=== PATIENT | female | born 1965 | race African-American/Black ===

== ENCOUNTER 2017-04-08 17:58 | Emergency (ER) | payer OTHER ==
[~2017-04-08] VITALS: Ht 152.4 cm; Wt 97.1 kg
--- NOTE | 2017-04-08 19:34 | PHYS DOC ---
General Chief Complaint: BURN/SMOKE INHALATION Stated Complaint: BURN ON ARMS Time Seen by MD: 19:31 Source: patient Exam Limitations: no limitations Problems: History of Present Illness Initial Comments Patient is a 51-year-old female here with a work comp burn injury to her arms. Patient states that she was removing a hot posey from a 400 oven burning the medial aspect of both of her forearms. It affected the right greater than left and took place about an hour and a half ago. There are areas of redness but no blisters she describes the pain as severe and is unable to tolerate her coat or other clothing overlying it. She's had ice on it since she's been here her tetanus is up-to-date. She is complaining of severe pain 10 on a pain scale states her tetanus is up-to-date she is normally healthy. Onset: this afternoon Severity: mild Pain/Injury Location: left forearm Method of Injury: burn Modifying Factors: worse with jarring, worse with movement Allergies: Coded Allergies: No Known Drug Allergies (Unverified , 04/08/17) Past Medical History Medical History: arthritis Surgical History: noncontributory Social History Smoker: cigarettes Alcohol: none Drugs: none Review of Systems Constitutional: denies chills, denies diaphoresis, denies fever, denies malaise Respiratory: denies cough, denies shortness of breath Cardiovascular: denies chest pain, denies palpitations Gastrointestinal: denies diarrhea, denies nausea, denies vomiting Musculoskeletal: see HPI Skin: see HPI Psychiatric/Neurological: denies numbness, denies paresthesia, denies pre- existing deficit, denies weakness Physical Exam General Appearance: mild distress Neck: non-tender, supple Cardiovascular/Respiratory: normal peripheral pulses, no respiratory distress Shoulder: non-tender, no evidence of injury Elbow/Forearm: normal ROM, soft tissue tenderness (areas of erythema at the medial aspects of bilateral forearms right greater than left total body surface area less than 3% there is no blisters or lopez are first-degree) Wrist: non-tender, no evidence of injury Neurologic/Tendon: normal sensation, normal motor functions, normal tendon functions, responds to pain, no evidence tendon injury Psychiatric: alert, oriented x 3 Orders, Labs, Meds After icing Silvadene applied and wounds dressed by RN. I discussed departure instructions [id number] and provided him in written format see below. Departure Time of Disposition: 19:32 Disposition: 01 HOME, SELF-CARE Diagnosis: work comp burn injuries bilateral forearms grade 1 Condition: GOOD Patient Instructions: Burn Care, [id number] Additional Instructions: Please review the patient education materials given by ED staff. Off work through . Follow-up with your employer regarding Worker's Compensation. [id number] ibuprofen for baseline discomfort. Prescription: Cephalexin, Silvadene, [place] 7.5 mg quantity 15 Change dressings each time you reapply Silvadene. Follow-up with her doctor in 2-3 days for recheck. Return to ED with new or changing symptoms. IVETT CAMARILLO DO Apr 08, 2017 19:34
[2017-04-08] MEDS ORDERED: HYDR-965 PO (19:36)
[2017-04-08] MEDS ORDERED: SILV20CR14 TP (19:38)
[2017-04-08] MEDS ORDERED: CEPH500C PO (19:38)
[2017-04-08 19:40] VITALS: BP 138/72
[2017-04-08] MEDS ORDERED: CEPHALEXIN 250 MG CAPSULE PO ONE (20:00)
[2017-04-08] MEDS ORDERED: ONDANSETRON ODT 4 MG TAB.RAPDIS PO ONE (20:00)
[2017-04-08] MEDS ORDERED: oxyCODONE/APAP 10/325 1 TAB TABLET PO ONE (20:00)
[2017-04-08] MEDS ORDERED: silver sulfADIAZINE 1% CREAM 50GM JAR. TP ONE (20:00)
== END 2017-04-08 19:47 | disposition home or self-care (01) ==
LOC: ER 17:58
DX: T22.112A Burn of first degree of left forearm, initial encounter (principal); T22.111A Burn of first degree of right forearm, initial encounter; T31.0 Burns involving less than 10% of body surface; F17.210 Nicotine dependence, cigarettes, uncomplicated; X15.2XXA Contact with hotplate, initial encounter; Y93.89 Activity, other specified; Y92.89 Other specified places as the place of occurrence of the external cause; Y99.0 Civilian activity done for income or pay
CPT/HCPCS: 16020; 99284; Q0162

== ENCOUNTER → 2018-04-15 | Outpatient (CLI) | payer OTHER ==
[~2018-04-15] MED LIST: CEPH500C PO; HYDR-3166 PO; SILV20CR14 TP
== END | disposition home or self-care (01) ==
LOC: SURG 09:18
PROVIDERS: ATTEND Anesthesiology
DX: M72.2 Plantar fascial fibromatosis (principal); M25.512 Pain in left shoulder; M19.90 Unspecified osteoarthritis, unspecified site; G47.33 Obstructive sleep apnea (adult) (pediatric); J45.909 Unspecified asthma, uncomplicated; Z79.899 Other long term (current) drug therapy
CPT/HCPCS: 99204

== ENCOUNTER → 2018-06-17 | Outpatient (CLI) | payer OTHER | END | disposition home or self-care (01) | LOC: SURG 11:52 | PROVIDERS: ATTEND Anesthesiology | DX: M19.012 Primary osteoarthritis, left shoulder (principal); M72.2 Plantar fascial fibromatosis; M25.712 Osteophyte, left shoulder; G47.30 Sleep apnea, unspecified; J45.909 Unspecified asthma, uncomplicated; J32.9 Chronic sinusitis, unspecified | CPT/HCPCS: 99214 ==